=== PATIENT | female | born 1955 | race Caucasian/White ===

== ENCOUNTER 2021-08-16 17:49 | Inpatient (IN) | payer OTHER ==
[~2021-08-16] VITALS: Ht 165.1 cm; Wt 78.5 kg
[2021-08-16] MEDS ORDERED: CLOP75TA14 PO (18:43)
[2021-08-16] MEDS ORDERED: DOCU-270 PO (18:43)
[2021-08-16] MEDS ORDERED: FAMO20 PO (18:43)
[2021-08-16] MEDS ORDERED: ASPI81TA87 PO (18:43)
[2021-08-16] MEDS ORDERED: METO50 PO (18:43)
[2021-08-16] MEDS ORDERED: ENOX80DI9 SQ (18:43)
[2021-08-16] MEDS ORDERED: ENAL-89 PO (18:43)
[2021-08-16] MEDS ORDERED: ATOR40TA71 PO (18:43)
[2021-08-16 19:06] LABS: BASOPHILS % (AUTO) 0.4 % (0.0-2.0); EOSINOPHILS % (AUTO) 1.4 % (1.0-6.0); HEMATOCRIT 35.8 % (36-46); HEMOGLOBIN 12.1 g/dL (12.0-16.0); LYMPHOCYTES # (AUTO) 2.7 K/uL (1.0-4.8); MEAN CORPUSCULAR HEMOGLOBIN 30.4 pg (26.0-34.0); MEAN CORPUSCULAR HGB CONC 33.9 G/dL (31.0-37.0); MEAN CORPUSCULAR VOLUME 90 fL (80-100); MONOCYTES # (AUTO) 0.6 K/uL (0.1-1.0); MONOCYTES % (AUTO) 6.9 % (2.0-9.0); NEUTROPHILS # (AUTO) 4.9 K/uL (1.8-7.7); NEUTROPHILS % (AUTO) 59.3 % (40.0-70.0); PLATELET COUNT (AUTO) 492 K/uL (150-450); RED BLOOD CELL COUNT(AUTO) 3.98 MIL/uL (4.00-5.20); RED CELL DISTRIBUTION WIDTH 12.8 % (11.5-14.5)
[2021-08-16 19:14] LABS: ANION GAP 9 mmol/L (8-16); CALCIUM, TOTAL 9.2 mg/dL (8.8-10.5); CARBON DIOXIDE 27 mmol/L (22-29); CHLORIDE 103 mmol/L (98-107); GLOMERULAR FILTR. RATE CALC > 60 mL/min (>60); GLUCOSE,RANDOM 137 mg/dL (70-110); POTASSIUM 3.8 mmol/L (3.5-5.1); SODIUM SERUM 139 mmol/L (136-145); UREA NITROGEN, BLOOD 11 mg/dL (7-18)
[2021-08-16 19:17] LABS: INR 1.1 (0.9-1.1); PROTHROMBIN TIME 11.2 SEC (9.4-11.6)
[2021-08-16 19:21] LABS: COVID AG,FIA SOURCE NASOPHARYNGEAL
[2021-08-16 19:26] LABS: ALANINE AMINOTRANSFERASE 24 U/L (12-78); ALBUMIN 3.2 g/dL (3.4-5.0); ALKALINE PHOSPHATASE 104 U/L (46-116); ASPARTATE AMINOTRANSFERASE 18 U/L (15-37); B-TYPE NATRIURETIC PEPTIDE 397 pg/mL (0-100); BILIRUBIN,TOTAL 0.4 mg/dL (0.1-1.0); CREATINE KINASE, TOTAL ONLY 64 U/L (26-192); TOTAL PROTEIN, SERUM 7.7 g/dL (6.4-8.2)
[2021-08-16] MEDS ORDERED: ONDANSETRON HCL 4 MG/2 ML VIAL IVP PRN (20:00)
[2021-08-16] MEDS ORDERED: ACETAMINOPHEN 325 MG TABLET PO PRN (20:00)
[2021-08-16] MEDS ORDERED: MORPHINE SULFATE 2 MG/ML SYRINGE IVP PRN (20:00)
[2021-08-16] MEDS ORDERED: DEXTROSE 50%-WATER 25 GM/50 ML SYRINGE IVP PRN (20:30)
[2021-08-16] MEDS ORDERED: HEPARIN SODIUM,PORCINE 5,000 UNITS/ML VIAL IVP PRN (20:45)
[2021-08-16] MEDS ORDERED: HEPARIN SODIUM 25000 UNITS/D5W 250 ML IV ONE (20:45)
[2021-08-16] MEDS ORDERED: HEPARIN SODIUM,PORCINE 5,000 UNITS/ML VIAL IVP ONE (20:45)
[2021-08-16 21:18] VITALS: BP 123/74
[2021-08-16] MEDS: FAMOTIDINE 20 MG TABLET PO SCH (21:59)
[2021-08-16] MEDS: DOCUSATE SODIUM 100 MG CAPSULE PO SCH (21:59)
[2021-08-16] MEDS: CARVEDILOL 3.125 MG TABLET PO SCH (21:59)
[2021-08-16] MEDS: HEPARIN SODIUM 25000 UNITS/D5W 250 ML IV PRN (22:30)
[2021-08-17] VITALS (7 sets, daily range): BP systolic 18–132; BP diastolic 51–172
[2021-08-17] MEDS ORDERED: HEPARIN SODIUM,PORCINE 5,000 UNITS/ML VIAL SQ SCH
[2021-08-17 06:03] LABS: BASOPHILS % (AUTO) 0.2 % (0.0-2.0); EOSINOPHILS % (AUTO) 2.1 % (1.0-6.0); HEMATOCRIT 37.5 % (36-46); HEMOGLOBIN 12.3 g/dL (12.0-16.0); LYMPHOCYTES # (AUTO) 3.1 K/uL (1.0-4.8); LYMPHOCYTES % (AUTO) 38.5 % (22.0-44.0); MEAN CORPUSCULAR HEMOGLOBIN 29.9 pg (26.0-34.0); MEAN CORPUSCULAR HGB CONC 32.8 G/dL (31.0-37.0); MEAN CORPUSCULAR VOLUME 91 fL (80-100); MONOCYTES # (AUTO) 0.5 K/uL (0.1-1.0); MONOCYTES % (AUTO) 6.8 % (2.0-9.0); NEUTROPHILS # (AUTO) 4.2 K/uL (1.8-7.7); NEUTROPHILS % (AUTO) 52.4 % (40.0-70.0); PLATELET COUNT (AUTO) 469 K/uL (150-450); RED BLOOD CELL COUNT(AUTO) 4.12 MIL/uL (4.00-5.20); RED CELL DISTRIBUTION WIDTH 12.8 % (11.5-14.5)
[2021-08-17] MEDS: INSULIN LISPRO 100 UNITS/ML SQ PRN ×2 (06:21→11:54)
[2021-08-17] MEDS: HEPARIN SODIUM,PORCINE 5,000 UNITS/ML VIAL IVP PRN (07:06)
[2021-08-17 08:21] LABS: GLUCOMETER DEV NAME(LOC) 5S.2B; GLUCOSE,POINT OF CARE 163 MG/DL (70-110)
[2021-08-17] MEDS: ATORVASTATIN CALCIUM 40 MG TABLET PO SCH (08:42)
[2021-08-17] MEDS: ASPIRIN 81 MG CHEWABLE TABLET PO SCH (08:43)
[2021-08-17] MEDS: DOCUSATE SODIUM 100 MG CAPSULE PO SCH ×2 (08:43→21:46)
[2021-08-17] MEDS: FAMOTIDINE 20 MG TABLET PO SCH ×2 (08:43→21:46)
[2021-08-17] MEDS: CARVEDILOL 3.125 MG TABLET PO SCH ×2 (08:43→21:46)
[2021-08-17] MEDS ORDERED: CLOPIDOGREL BISULFATE 75 MG TABLET PO ONE (09:00)
[2021-08-17 09:06] LABS: APPEARANCE,URINE HAZY (CLEAR); BILIRUBIN,URINE NEGATIVE (NEGATIVE); GLUCOSE, URINE (UA) NEGATIVE (NEGATIVE); KETONES,URINE TRACE mg/dL (NEGATIVE); LEUKOCYTE ESTERASE ,URINE LARGE (NEGATIVE); NITRATE,URINE POSITIVE (NEGATIVE); OCCULT BLOOD,URINE TRACE (NEGATIVE); PH,URINE 5.5 (5.0-8.0); PROTEIN,URINE TRACE mg/dL (NEGATIVE); SPECIFIC GRAVITIY, URINE 1.022 (1.003-1.030); UROBILINOGEN,URINE <=1.0 mg/dL (<=1.0)
[2021-08-17 09:20] LABS: BACTERIA,URINE Many /HPF (None Seen); RBC,URINE 0-2 /HPF (0-2); SQUAMOUS EPITHELIAL CELL,UR Moderate /LPF (None Seen); WBC,URINE 51-100 /HPF (0-5)
[2021-08-17 11:56] LABS: GLUCOMETER DEV NAME(LOC) 5S.1B; GLUCOSE,POINT OF CARE 185 MG/DL (70-110)
[2021-08-17 17:01] LABS: GLUCOMETER DEV NAME(LOC) 5S.2B; GLUCOSE,POINT OF CARE 244 MG/DL (70-110)
[2021-08-18] VITALS (12 sets, daily range): BP systolic 111–146; BP diastolic 56–92
[2021-08-18 01:01] LABS: GLUCOMETER DEV NAME(LOC) 5S.1B; GLUCOSE,POINT OF CARE 165 MG/DL (70-110)
[2021-08-18] MEDS: HEPARIN SODIUM 25000 UNITS/D5W 250 ML IV PRN (05:34)
[2021-08-18] MEDS: HEPARIN SODIUM,PORCINE 5,000 UNITS/ML VIAL IVP PRN (06:28)
[2021-08-18 08:16] LABS: GLUCOMETER DEV NAME(LOC) 5S.1B; GLUCOSE,POINT OF CARE 176 MG/DL (70-110)
[2021-08-18] MEDS: ASPIRIN 81 MG CHEWABLE TABLET PO SCH (09:00)
[2021-08-18] MEDS: CARVEDILOL 3.125 MG TABLET PO SCH ×2 (09:00→21:32)
[2021-08-18] MEDS: FAMOTIDINE 20 MG TABLET PO SCH ×2 (09:00→21:32)
[2021-08-18] MEDS: ATORVASTATIN CALCIUM 40 MG TABLET PO SCH (09:00)
[2021-08-18] MEDS: DOCUSATE SODIUM 100 MG CAPSULE PO SCH ×2 (09:00→21:32)
[2021-08-18 12:31] LABS: GLUCOMETER DEV NAME(LOC) 5S.1B; GLUCOSE,POINT OF CARE 170 MG/DL (70-110)
[2021-08-18] MEDS ORDERED: LIDOCAINE/PF 1% 30 ML VIAL ONE (12:39)
[2021-08-18] MEDS ORDERED: SODIUM BICARBONATE 50 MEQ/50 ML VIAL ONE (12:39)
[2021-08-18] MEDS ORDERED: IOHEXOL 300 MG/ML 150 ML VIAL ONE (12:39)
[2021-08-18] MEDS ORDERED: FentaNYL CITRATE PF 100 MCG/2 ML VIAL ONE (12:56)
[2021-08-18] MEDS ORDERED: MIDAZOLAM HCL 2 MG/2 ML VIAL ONE (12:56)
[2021-08-18] MEDS ORDERED: SODIUM CHLORIDE 0.9% 500 ML IV ONE (13:15)
[2021-08-18] MEDS ORDERED: FentaNYL CITRATE PF 100 MCG/2 ML VIAL IVP ONE (13:15)
[2021-08-18] MEDS ORDERED: HEPARIN SODIUM 1000 UNITS/NS 1,000 ML IARTER ONE (13:15)
[2021-08-18] MEDS ORDERED: IOHEXOL 300 MG/ML 150 ML VIAL IARTER ONE (13:15)
[2021-08-18] MEDS ORDERED: MIDAZOLAM HCL 2 MG/2 ML VIAL IVP ONE (13:15)
[2021-08-18] MEDS ORDERED: HEPARIN SODIUM,PORCINE 5,000 UNITS/ML VIAL IVP ONE ×3 (13:15→15:30)
[2021-08-18] MEDS ORDERED: LIDOCAINE 1% 30 ML/SOD BICARB 8.4% 4 ML SQ ONE (13:15)
[2021-08-18] MEDS ORDERED: IOHEXOL 300 MG/ML 50 ML VIAL ONE (13:23)
[2021-08-18] MEDS ORDERED: TICAGRELOR 90 MG TABLET ONE (14:03)
[2021-08-18] MEDS ORDERED: IOHEXOL 300 MG/ML 100 ML VIAL ONE ×3 (14:08→14:28)
[2021-08-18] MEDS ORDERED: TICAGRELOR 90 MG TABLET PO ONE (14:45)
[2021-08-18] MEDS: TICAGRELOR 90 MG TABLET PO SCH (21:32)
[2021-08-18] MEDS: INSULIN LISPRO 100 UNITS/ML SQ PRN (21:54)
[2021-08-18] MEDS: LOSARTAN POTASSIUM 25 MG TABLET PO SCH (23:06)
[2021-08-19] VITALS: BP 128/64
[2021-08-19 04:00] VITALS: BP 104/63
[2021-08-19 06:36] LABS: GLUCOSE,POINT OF CARE 219 MG/DL (70-110)
[2021-08-19 07:01] LABS: GLUCOSE,POINT OF CARE 176 MG/DL (70-110)
[2021-08-19 08:00] VITALS: BP 108/62
[2021-08-19] MEDS: DOCUSATE SODIUM 100 MG CAPSULE PO SCH ×2 (09:00→20:57)
[2021-08-19] MEDS: LOSARTAN POTASSIUM 25 MG TABLET PO SCH (09:12)
[2021-08-19] MEDS: ATORVASTATIN CALCIUM 40 MG TABLET PO SCH (09:12)
[2021-08-19] MEDS: ASPIRIN 81 MG CHEWABLE TABLET PO SCH (09:12)
[2021-08-19] MEDS: TICAGRELOR 90 MG TABLET PO SCH ×2 (09:13→20:57)
[2021-08-19] MEDS: FAMOTIDINE 20 MG TABLET PO SCH ×2 (09:14→20:56)
[2021-08-19] MEDS: CARVEDILOL 3.125 MG TABLET PO SCH ×2 (09:16→20:56)
[2021-08-19] MEDS: INSULIN LISPRO 100 UNITS/ML SQ PRN ×3 (11:56→21:22)
[2021-08-19 12:00] VITALS: BP 108/62
[2021-08-19 12:07] LABS: GLUCOMETER DEV NAME(LOC) AHU.; GLUCOSE,POINT OF CARE 192 MG/DL (70-110)
[2021-08-19 16:00] VITALS: BP 116/65
[2021-08-19 17:56] LABS: GLUCOSE,POINT OF CARE 198 MG/DL (70-110)
[2021-08-19 20:00] VITALS: BP 110/65
[2021-08-19] MEDS: ETHYL ALCOHOL 62% ANTISEPTIC NASAL INHALANT 0.6 ML AMPUL NASAL SCH (20:56)
[2021-08-19 23:52] LABS: GLUCOSE,POINT OF CARE 218 MG/DL (70-110)
[2021-08-20] VITALS: BP 103/65
[2021-08-20 04:00] VITALS: BP 93/60
[2021-08-20] MEDS: INSULIN LISPRO 100 UNITS/ML SQ PRN (06:23)
[2021-08-20 08:00] VITALS: BP 108/64
[2021-08-20] MEDS: DOCUSATE SODIUM 100 MG CAPSULE PO SCH (09:00)
[2021-08-20] MEDS: ETHYL ALCOHOL 62% ANTISEPTIC NASAL INHALANT 0.6 ML AMPUL NASAL SCH (09:21)
[2021-08-20] MEDS: ATORVASTATIN CALCIUM 40 MG TABLET PO SCH (09:22)
[2021-08-20] MEDS: ASPIRIN 81 MG CHEWABLE TABLET PO SCH (09:22)
[2021-08-20] MEDS: LOSARTAN POTASSIUM 25 MG TABLET PO SCH (09:22)
[2021-08-20] MEDS: FAMOTIDINE 20 MG TABLET PO SCH (09:22)
[2021-08-20] MEDS: TICAGRELOR 90 MG TABLET PO SCH (09:22)
[2021-08-20] MEDS: CARVEDILOL 3.125 MG TABLET PO SCH (09:25)
[2021-08-20 12:00] VITALS: BP 111/68
[2021-08-20 12:51] LABS: GLUCOSE,POINT OF CARE 278 MG/DL (70-110)
[2021-08-20 13:36] LABS: GLUCOSE,POINT OF CARE 191 MG/DL (70-110)
[2021-08-20] MEDS ORDERED: LOSA25TA2 PO (14:14)
[2021-08-20] MEDS ORDERED: ASPI81 PO (14:14)
[2021-08-20] MEDS ORDERED: TICA90TA PO (14:14)
[2021-08-20] MEDS ORDERED: ATOR40TA71 PO (14:14)
[2021-08-20] MEDS ORDERED: CARV6 PO (14:14)
== END 2021-08-20 17:35 | disposition home or self-care (01) | DRG 246 ==
LOC: EMS 17:55 → 5N 20:00 → ICU 08-18 15:20
PROVIDERS: ADMIT Internal Medicine; ATTEND Internal Medicine
PROC: 027237Z Dilation of Coronary Artery, Three Arteries with Four or More Drug-eluting Intraluminal Devices, Percutaneous Approach (ICD-10-PCS; principal; 2021-08-18)
PROC: 4A023N7 Measurement of Cardiac Sampling and Pressure, Left Heart, Percutaneous Approach (ICD-10-PCS; 2021-08-18)
PROC: B211YZZ Fluoroscopy of Multiple Coronary Arteries using Other Contrast (ICD-10-PCS; 2021-08-18)
PROC: B215YZZ Fluoroscopy of Left Heart using Other Contrast (ICD-10-PCS; 2021-08-18)
PROC: B41FYZZ Fluoroscopy of Right Lower Extremity Arteries using Other Contrast (ICD-10-PCS; 2021-08-18)
PROC: B41JYZZ Fluoroscopy of Other Lower Arteries using Other Contrast (ICD-10-PCS; 2021-08-18)
PROC: B41CYZZ Fluoroscopy of Pelvic Arteries using Other Contrast (ICD-10-PCS; 2021-08-18)
PROC: B241ZZ3 Ultrasonography of Multiple Coronary Arteries, Intravascular (ICD-10-PCS; 2021-08-18)
DX: I21.19 ST elevation (STEMI) myocardial infarction involving other coronary artery of inferior wall (principal); E11.9 Type 2 diabetes mellitus without complications; E78.5 Hyperlipidemia, unspecified; I10 Essential (primary) hypertension; Z20.822 Contact with and (suspected) exposure to COVID-19; I25.2 Old myocardial infarction; Z90.710 Acquired absence of both cervix and uterus; Z86.16 Personal history of COVID-19; Z79.899 Other long term (current) drug therapy; Z83.3 Family history of diabetes mellitus
CPT/HCPCS: 37236; 71045; 80053; 81001; 82550; 82962; 83880; 84484; 85025; 85610; 85730; 87081; 87086; 92920; 92921; 92928; 93005; 93306; 99291; G0378; J1644; J2250; J3010; J3490; Q9967; 36415-L1; 36415-TC